=== PATIENT | male | born 1960 | race Two or more races ===

== ENCOUNTER 2016-10-10 12:08 | Emergency (ER) | payer OTHER ==
[~2016-10-10] VITALS: Ht 167.6 cm; Wt 63.5 kg
[~2016-10-10 12:08] MED LIST: PHENERGAN 25MG.25 M1 PO; ZITHROMAX Z PA250 MG PO
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
[2016-10-10 12:28] LABS: HEMOGLOBIN 15.5 g/dL (14.1-18.0); LYMPH # 2.7 K/mm3 (0.7-4.5); LYMPH % 28.7 % (10-50)
--- NOTE | 2016-10-10 13:37 | RADIOLOGY REPORT PS360 ---
CT THORACIC SPINE W/O CONTRAST ORDERING PHYSICIAN : Thad Dennis MD PATIENT AGE: 56 years GENDER: Male INDICATION: FELL FROM ROOF. Mid thoracic back pain between shoulder blades-as per ER nurse COMPARISON: No previous but there is a CT C-spine from today FINDINGS Helical CT scanning performed through the thoracic spine. Sagittal coronal and axial reconstructions on CT workstation. Images began at lower cervical spine. As described on previous CT C-spine Prominent degenerative disc changes and slight retrolisthesis of C6 on 7 observed. Appears to be chronic in nature with cervical spondylosis and posterior ridging most evident encroach upon the left foramen. Also note prominent facet arthropathy and hypertrophy to the left at C7/T1 . Understand patient's pain is at the mid thoracic spine between shoulder blades. Mid and upper thoracic vertebral bodies intact and unremarkable in this region. Spinous processes intact. The very slight decreased height at T11 most likely reflects the mild congenital changes and can occur at this level. Doubt acute compression fracture but there should be persistent pain at the lower T-spine dorsal lumbar junction with consider follow-up MR.. The thoracic spinal canal appears satisfactory and intact Patient does have some degenerative changes at the lower T-spine with hypertrophic, degenerative facet changes seen towards the lower T-spine. Also some mild hypertrophy where the T10 transverse process articulates with the superior margin of the left 10th left rib..- Degenerative feature. Partially imaged posterior lungs unremarkable ------IMPRESSION: Understand patient's pain is at mid T-spine.-With No acute fractures at mid to upper T-spine.. The very subtle decreased height at T11 most likely reflects minor congenital feature which commonly occurs at this level. However if there should be pain at lower T-spine, T11 region and consider follow-up T-spine MRI. Moderate degenerative facet changes throughout the lower T-spine incidentally noted Prominent degenerative disc changes and spondylosis at C6/7 with minor degenerative retrolisthesis C6 on 7. Prominent degenerative facet changes left at C7/T1
[2016-10-10] MEDS ORDERED: PERCOCET1 TAB PO (13:39)
[2016-10-10] MEDS ORDERED: IBUPROFEN800 MG PO (13:39)
--- NOTE | 2016-10-10 13:59 | RADIOLOGY REPORT PS360 ---
CT CERVICAL SPINE W/O CONT ORDERING PHYSICIAN : Thad Dennis MD PATIENT AGE: 56 years GENDER: Male INDICATION: FELL FROM ROOF . Back pain at Thoracic spine as well as neck pain TECHNIQUE: Helical CT scanning performed through the cervical spine with sagittal and coronal reconstructions on CT workstation COMPARISON: No previous FINDINGS No acute fracture nor subluxation. There is degenerative disc changes and cervical spondylosis most evident at C6/7. Diffuse Posterior hypertrophic ridging most evident the left marginal osteophytes and spurring most evident left paracentral impinge upon the left anterior aspect & corner of the cervical cord; & encroach upon entry left foramen. Axial slice 56. Sagittal slice 38 C7/T1 mild degenerative disc changes. Suspect disc bulge & question possible mild central disc protrusion. Prominent degenerative, hypertrophic facet changes to the left at C7/T1 reflect long-standing changes here. These also slightly encroaches upon the left foramen this level. Cervical pain radiculopathy persist then MR may be of benefit to evaluate for disc disease, but I see no acute findings osseous C-spine.. Prevertebral soft tissues appear normal. The larynx deviates the left with moderate asymmetry. Possibly old trauma? Not acute. Incidental note of moderate diffuse mucosal thickening at the maxillary sinuses air-fluid level at the posterior right maxillary sinus reflecting acute right maxillary sinus and possibly left maxillary sinus is well. Bilateral ethmoid sinusitis. Diffuse generous mucosal thickening. Mild mucosal thickening sphenoid sinuses. Frontal sinuses not included. Partially imaged unremarkable. . Dental caries noted most evident at inferior cuspid region bilaterally as well as left upper cuspid. Extensive caries. Also involving left lower posterior molar.. Mastoid air cells unremarkable. Most likely reactive nodes but warrant clinical correlation. The apices of lungs clear. Moderate size nodes scattered throughout the neck Incidental note dilated ectatic right innominate artery measuring nearly 2 cm diameter. Appears to branch to the right vertebral and subclavian above this. IMPRESSION------ 1. No acute fracture nor subluxation cervical spine. 2.. Degenerative changes C-spine, w/ cervical spondylosis most evident at C6/7.. Degenerative changes with Mild posterior ridging most evident left of midline & continuing towards left foramen.. 3. Also note Prominent degenerative facet changes to left at C7/T1 4. - Acute maxillary sinusitis with prominent bilateral ethmoid sinusitis incidentally noted. 5.-Prominent dental caries bilaterally involving multiple upper and lower teeth 6.Other observations in text.
[2016-10-10 14:00] VITALS: BP 134/70
--- NOTE | 2016-10-10 14:03 | RADIOLOGY REPORT PS360 ---
[id number] VIEWS ORDERING PHYSICIAN : Thad Dennis MD PATIENT AGE: 56 years GENDER: Male INDICATION: RT SHOULDER PAIN, FALL FROM BARN TECHNIQUE: 3 views right shoulder COMPARISON: No previous studies of specifically right shoulder but there is a chest film from June 2008 which includes right shoulder. FINDINGS glenohumeral joint is intact no fracture nor dislocation scapula intact . There is a slightly prominent and cavity at the base of the humeral head with mild sclerosis here. Borderline narrowing of the subacromial space. Cannot exclude underlying rotator cuff abnormalities impingement. If symptoms suggest such consider further evaluation. Question additional soft tissue density & swelling overlying the lateral to the greater tuberosity the proximal humerus-at the region of the deltoid. Clinical correlation required. . IMPRESSION: No acute fracture nor subluxation. Question soft tissue swelling in region of deltoid, lateral to the proximal humerus & greater tuberosity.. Clinical correlation required.
--- NOTE | 2016-10-10 14:10 | RADIOLOGY REPORT PS360 ---
CHEST-AP VIEW ONLY ORDERING PHYSICIAN : Thad Dennis MD PATIENT AGE: 56 years GENDER: Male INDICATION: chest symptoms fell from roof. Chest trauma back pain PROCEDURE:Supine CHEST-AP VIEW ONLY COMPARISON: None available FINDINGS: Lungs well expanded No pneumothorax. No pleural effusion. Central marking, perihilar markings are evident on right than left. Some part may be due to technique and less optimal inspiration but consider follow-up chest film 2 view particular if respiratory symptoms.. Heart upper normal size likely exaggerated by AP supine projection. Normal pulmonary vascularity. Chest wall unremarkable. No obvious rib fractures. No pleural effusion IMPRESSION Chest wall unremarkable. Mild accentuation of central markings. Cannot exclude a subtle perihilar infiltrate however more likely this appearance is due to technique and less than optimal inspiration. Follow-up PA and lateral chest recommended follow-up, particularly if chest symptoms or significant history of smoking
[2016-11-29] MEDS ORDERED: MIRALAX(PO17 GM/1 PA PO (20:06)
== END 2016-10-10 14:01 | disposition home or self-care (01) ==
LOC: ER 12:08
PROVIDERS: Emergency Medicine
DX: S10.93XA Contusion of unspecified part of neck, initial encounter (principal); S20.229A Contusion of unspecified back wall of thorax, initial encounter; W13.2XXA Fall from, out of or through roof, initial encounter; Y99.0 Civilian activity done for income or pay
CPT/HCPCS: J2405